=== PATIENT | male | born 1955 | race Caucasian/White ===

== ENCOUNTER → 2020-10-31 | Outpatient (CLI) | payer BC ==
[~2020-10-31] MED LIST: CELECOXIB200 MG PO; CRESTOR5 MG PO; ESOMEPRAZOLE MA40 MG PO; FLOMAX 0.4 MG0.4 MG PO; LEFLUNOMIDE20 MG PO; LEVOTHYROXINE50 MC1 PO; LISINOPRIL10 MG PO; METHOCARBAMOL500 MG PO; NEURONTIN800 MG PO; PIOGLITAZONE HC30 MG PO; TRAMADOL-ACETA1 EACH PO; TRULICITY0.75 MG/0. SQ; VITAMIN B-121000 MC3 PO
== END ==
LOC: CT 08:14
DX: R06.81 Apnea, not elsewhere classified (principal); R91.8 Other nonspecific abnormal finding of lung field; E11.9 Type 2 diabetes mellitus without complications
CPT/HCPCS: 36415; 71260; 82565; 84520; Q9963

== ENCOUNTER → 2020-12-08 | Day surgery (SDC) | payer BC | END | disposition home or self-care (01) | LOC: OR 08:07 | PROVIDERS: Internal Medicine Gastroenterology | PROC: 0DJD8ZZ Inspection of Lower Intestinal Tract, Via Natural or Artificial Opening Endoscopic (ICD-10-PCS; principal; 2020-12-08 12:30) | DX: Z12.11 Encounter for screening for malignant neoplasm of colon (principal); K57.30 Diverticulosis of large intestine without perforation or abscess without bleeding; K64.0 First degree hemorrhoids; I10 Essential (primary) hypertension; E11.9 Type 2 diabetes mellitus without complications; M19.90 Unspecified osteoarthritis, unspecified site; E66.8 Other obesity; Z68.36 Body mass index [BMI] 36.0-36.9, adult; Z79.899 Other long term (current) drug therapy; Z79.1 Long term (current) use of non-steroidal anti-inflammatories (NSAID); Z79.891 Long term (current) use of opiate analgesic; Z86.010 Personal history of colon polyps; Z20.822 Contact with and (suspected) exposure to COVID-19 | CPT/HCPCS: 82962; J2704; J7040 ==

== ENCOUNTER → 2021-03-22 | Outpatient (CLI) | payer BC | LOC: EXRD 09:51 | DX: M17.0 Bilateral primary osteoarthritis of knee (principal) | CPT/HCPCS: 73564 ==

== ENCOUNTER 2021-06-16 11:22 | Emergency (ER) | payer BC ==
[~2021-06-16] VITALS: Ht 165.1 cm; Wt 94.3 kg
== END 2021-06-16 14:08 | disposition home or self-care (01) ==
LOC: ER1 11:22
DX: Z23 Encounter for immunization (principal); U07.1 COVID-19; E11.22 Type 2 diabetes mellitus with diabetic chronic kidney disease; N18.9 Chronic kidney disease, unspecified
CPT/HCPCS: 99284; M0243

== ENCOUNTER → 2022-06-20 | Outpatient (CLI) | payer BC | LOC: LAB 16:21 | DX: R07.9 Chest pain, unspecified (principal) | CPT/HCPCS: 36415; 82550; 82553; 84484; 85379 ==